=== PATIENT | male | born 1950 | race Asian ===

== ENCOUNTER → 2020-01-03 | Outpatient (CLI) | payer OTHER ==
[2020-01-03 11:07] LABS: APPEARANCE,URINE CLEAR (CLEAR); BILIRUBIN,URINE NEGATIVE (NEGATIVE); GLUCOSE, URINE (UA) 500 mg/dL (NEGATIVE); KETONES,URINE NEGATIVE (NEGATIVE); LEUKOCYTE ESTERASE ,URINE NEGATIVE (NEGATIVE); NITRATE,URINE NEGATIVE (NEGATIVE); OCCULT BLOOD,URINE TRACE (NEGATIVE); PROTEIN,URINE SEE CONFIRM (NEGATIVE); UROBILINOGEN,URINE 0.2 mg/dL (<=1.0)
[2020-01-03 11:16] LABS: SULFOSALICYLIC ACID,URINE 2+ (Negative)
[2020-01-03 11:17] LABS: BACTERIA,URINE None Seen /HPF (None Seen); RBC,URINE 0-2 /HPF (0-2); WBC,URINE None Seen /HPF (0-5)
[2020-01-03 11:17] LABS: ALBUMIN 3.6 g/dL (3.4-5.0); BILIRUBIN,TOTAL 0.3 mg/dL (0.1-1.0); CALCIUM, TOTAL 8.6 mg/dL (8.8-10.5); CREATININE 2.71 mg/dL (0.60-1.30); TOTAL PROTEIN, SERUM 7.4 g/dL (6.4-8.2)
== END | disposition home or self-care (01) ==
LOC: RADPV 08:17
PROVIDERS: ATTEND Orthopaedic Surgery
DX: I25.9 Chronic ischemic heart disease, unspecified (principal); E11.9 Type 2 diabetes mellitus without complications
CPT/HCPCS: 82043; 82570; 93306

== ENCOUNTER 2025-01-30 23:57 | Inpatient (IN) | payer MEDICARE, OTHER ==
[~2025-01-30] VITALS: Ht 162.6 cm; Wt 80.1 kg
[2025-01-31 00:52] LABS: BASOPHILS % (AUTO) 0.7 % (0.0-2.0); EOSINOPHILS % (AUTO) 13.3 % (1.0-6.0); HEMATOCRIT 21.7 % (41-53); HEMOGLOBIN 7.2 g/dL (13.5-17.5); LYMPHOCYTES # (AUTO) 0.7 K/uL (1.0-4.8); LYMPHOCYTES % (AUTO) 6.6 % (22.0-44.0); MEAN CORPUSCULAR HEMOGLOBIN 30.3 pg (26.0-34.0); MEAN CORPUSCULAR HGB CONC 33.2 G/dL (31.0-37.0); MEAN CORPUSCULAR VOLUME 91 fL (80-100); MONOCYTES # (AUTO) 0.8 K/uL (0.1-1.0); MONOCYTES % (AUTO) 7.3 % (2.0-9.0); NEUTROPHILS # (AUTO) 7.4 K/uL (1.8-7.7); NEUTROPHILS % (AUTO) 72.1 % (40.0-70.0); PLATELET COUNT (AUTO) 203 K/uL (150-450); RED BLOOD CELL COUNT(AUTO) 2.38 MIL/uL (4.50-5.90); RED CELL DISTRIBUTION WIDTH 14.9 % (11.5-14.5); WHITE BLOOD COUNT (AUTO) 10.3 K/uL (4.5-11.0)
[2025-01-31 00:59] LABS: COVID AG,FIA SOURCE NASAL SWAB
[2025-01-31 01:05] LABS: ANION GAP 14 mmol/L (8-16); CALCIUM, TOTAL 7.5 mg/dL (8.8-10.5); CARBON DIOXIDE 18 mmol/L (22-29); CHLORIDE 108 mmol/L (98-107); CREATININE 10.68 mg/dL (0.60-1.30); GLOMERULAR FILTR. RATE CALC 5 mL/min (>60); GLUCOSE,RANDOM 185 mg/dL (70-110); POTASSIUM 5.4 mmol/L (3.5-5.1); SODIUM SERUM 140 mmol/L (136-145)
[2025-01-31 01:07] LABS: APPEARANCE,URINE CLEAR (CLEAR); BILIRUBIN,URINE NEGATIVE (NEGATIVE); COLOR,URINE COLORLESS (YELLOW); GLUCOSE, URINE (UA) 300-500 mg/dL (NEGATIVE); KETONES,URINE NEGATIVE (NEGATIVE); LEUKOCYTE ESTERASE ,URINE NEGATIVE (NEGATIVE); NITRATE,URINE NEGATIVE (NEGATIVE); OCCULT BLOOD,URINE SMALL (NEGATIVE); PH,URINE 5.5 (5.0-8.0); PROTEIN,URINE 300-600,SEE CONFIRM mg/dL (NEGATIVE); SPECIFIC GRAVITIY, URINE 1.009 (1.003-1.030); UROBILINOGEN,URINE <=1.0 mg/dL (<=1.0)
[2025-01-31 01:08] LABS: ALBUMIN 2.8 g/dL (3.4-5.0); BILIRUBIN,DIRECT 0.1 mg/dL (0.00-0.20); BILIRUBIN,TOTAL 0.2 mg/dL (0.1-1.0); TOTAL PROTEIN, SERUM 7.2 g/dL (6.4-8.2)
[2025-01-31 01:16] LABS: CREATINE KINASE, TOTAL ONLY 210 U/L (39-308); UREA NITROGEN, BLOOD 140 mg/dL (7-18)
[2025-01-31 01:18] LABS: TROPONIN I-HIGH SENSITIVITY 261 ng/L (<76)
[2025-01-31 01:20] LABS: B-TYPE NATRIURETIC PEPTIDE 217 pg/mL (0-100)
[2025-01-31 01:23] LABS: SARS-COV2 (COVID) ANTIGEN,FIA Negative (Negative)
[2025-01-31 01:24] LABS: INFLUENZA TYPE A NEGATIVE FOR TYPE A (NEGATIVE); INFLUENZA TYPE B NEGATIVE FOR TYPE B (NEGATIVE)
[2025-01-31 01:33] LABS: PHOSPHORUS 3.1 mg/dL (2.5-4.9)
[2025-01-31] MEDS ORDERED: ALBUTEROL SULFATE 2.5 MG/0.5 ML NEB SOLUTION NEB PRN (01:45)
[2025-01-31] MEDS ORDERED: BISACODYL 10 MG RECTAL RECTAL SUPPOSITORY PR PRN (01:45)
[2025-01-31] MEDS ORDERED: ACETAMINOPHEN 325 MG TABLET PO PRN (01:45)
[2025-01-31] MEDS ORDERED: DEXTROSE 50%-WATER 25 GM/50 ML SYRINGE IVP PRN (01:45)
[2025-01-31] MEDS ORDERED: ONDANSETRON HCL 4 MG/2 ML VIAL IVP PRN (01:45)
[2025-01-31 01:46] LABS: BACTERIA,URINE Rare /HPF (None Seen); RBC,URINE 0-2 /HPF (0-2); SULFOSALICYLIC ACID,URINE 2+ (Negative); WBC,URINE 0-2 /HPF (0-5)
[2025-01-31 03:27] LABS: TROPONIN I-HIGH SENSITIVITY 235 ng/L (<76)
[2025-01-31 07:36] VITALS: BP 137/77; PULSE 82; RESP 19; TEMP 97.9; O2SAT 98
[2025-01-31 07:40] VITALS: BP 137/77; PULSE 82; RESP 18; TEMP 97.9; O2SAT 98
[2025-01-31] MEDS: DOCUSATE SODIUM 100 MG CAPSULE PO SCH (09:00)
[2025-01-31] MEDS: HEPARIN SODIUM,PORCINE 5,000 UNITS/ML VIAL SQ SCH (09:01)
[2025-01-31] MEDS: FAMOTIDINE 20 MG TABLET PO SCH (09:01)
[2025-01-31] MEDS: FOLIC ACID/VIT B COMPLEX AND C TABLET PO SCH (12:03)
[2025-01-31] MEDS: SODIUM ZIRCONIUM CYCLOSILICATE 5 GM POWDER PACKET PO SCH (12:04)
[2025-01-31] MEDS: PANTOPRAZOLE SODIUM 40 MG/VIAL IVP SCH (12:04)
[2025-01-31] MEDS: FUROSEMIDE 40 MG/4 ML VIAL IVP SCH (12:04)
[2025-01-31] MEDS: SEVELAMER CARBONATE 800 MG TABLET PO SCH (12:52)
[2025-01-31] MEDS: SODIUM BICARBONATE 650 MG TABLET PO SCH (12:54)
[2025-01-31] MEDS: SOD FERRIC GLUC COMPLX/SUCROSE 125 MG in SODIUM CHLORIDE 0.9% 100 ML IV SCH (13:16)
[2025-01-31] MEDS: EPOETIN ALFA 10,000 UNITS/ML VIAL SQ ONE (13:17)
[2025-01-31] MEDS ORDERED: SODIUM CHLORIDE 0.9% 500 ML IV ONE (13:19)
[2025-01-31] MEDS ORDERED: SODIUM CHLORIDE 0.9% 250 ML IV ONE (13:20)
[2025-01-31 13:25] VITALS: BP 137/67; PULSE 83; RESP 18; TEMP 97.8; O2SAT 100
[2025-01-31 16:40] VITALS: BP 133/54; PULSE 80; RESP 19; TEMP 97.9; O2SAT 99
[2025-01-31 17:46] LABS: GLUCOMETER DEV NAME(LOC) 5N.2C; GLUCOSE,POINT OF CARE 128 MG/DL (70-110)
[2025-01-31 17:46] LABS: GLUCOMETER DEV NAME(LOC) 5N.2C; GLUCOSE,POINT OF CARE 98 MG/DL (70-110)
[2025-01-31 17:46] LABS: GLUCOMETER DEV NAME(LOC) 5N.2C; GLUCOSE,POINT OF CARE 110 MG/DL (70-110)
[2025-01-31 19:30] VITALS: BP 139/68; PULSE 84; RESP 19; TEMP 97.9; O2SAT 98
[2025-01-31] MEDS: INSULIN LISPRO 100 UNITS/ML SQ PRN (20:18)
[2025-02-01 00:01] LABS: GLUCOMETER DEV NAME(LOC) 5N.2C; GLUCOSE,POINT OF CARE 217 MG/DL (70-110)
[2025-02-01 01:40] VITALS: BP 124/72; PULSE 82; RESP 18; TEMP 98; O2SAT 95
[2025-02-01 04:26] VITALS: BP 137/77; PULSE 74; RESP 18; TEMP 97.8; O2SAT 98
[2025-02-01 06:29] LABS: BASOPHILS % (AUTO) 0.8 % (0.0-2.0); EOSINOPHILS % (AUTO) 11.5 % (1.0-6.0); HEMATOCRIT 21.8 % (41-53); HEMOGLOBIN 7.2 g/dL (13.5-17.5); LYMPHOCYTES # (AUTO) 0.6 K/uL (1.0-4.8); LYMPHOCYTES % (AUTO) 6.9 % (22.0-44.0); MEAN CORPUSCULAR HEMOGLOBIN 30.2 pg (26.0-34.0); MEAN CORPUSCULAR HGB CONC 33.2 G/dL (31.0-37.0); MEAN CORPUSCULAR VOLUME 91 fL (80-100); MONOCYTES # (AUTO) 0.7 K/uL (0.1-1.0); MONOCYTES % (AUTO) 7.7 % (2.0-9.0); NEUTROPHILS # (AUTO) 6.8 K/uL (1.8-7.7); NEUTROPHILS % (AUTO) 73.1 % (40.0-70.0); PLATELET COUNT (AUTO) 208 K/uL (150-450); RED CELL DISTRIBUTION WIDTH 14.8 % (11.5-14.5); WHITE BLOOD COUNT (AUTO) 9.4 K/uL (4.5-11.0)
[2025-02-01 06:55] LABS: CALCIUM, TOTAL 7.5 mg/dL (8.8-10.5); CREATININE 10.02 mg/dL (0.60-1.30); PHOSPHORUS 8.8 mg/dL (2.5-4.9); POTASSIUM 4.9 mmol/L (3.5-5.1)
[2025-02-01 07:11] LABS: % IRON SATURATION 66.5 % (30-44)
[2025-02-01 08:57] VITALS: BP 149/78; PULSE 83; RESP 18; TEMP 97.9; O2SAT 97
[2025-02-01 12:16] VITALS: BP 140/72; PULSE 79; RESP 18; TEMP 98.1; O2SAT 98
[2025-02-01 12:25] LABS: GLUCOMETER DEV NAME(LOC) 5N.2C; GLUCOSE,POINT OF CARE 80 MG/DL (70-110)
[2025-02-01 12:25] LABS: GLUCOMETER DEV NAME(LOC) 5N.2C; GLUCOSE,POINT OF CARE 117 MG/DL (70-110)
== END 2025-02-01 14:00 | disposition left against medical advice (07) | DRG 640 ==
LOC: EMS 23:57 → EDH 01-31 01:39 → 5N 01-31 05:40
PROVIDERS: ADMIT Internal Medicine; ATTEND Internal Medicine
DX: E87.70 Fluid overload, unspecified (principal); N18.6 End stage renal disease; I12.0 Hypertensive chronic kidney disease with stage 5 chronic kidney disease or end stage renal disease; E87.20 Acidosis, unspecified; E87.5 Hyperkalemia; Z20.822 Contact with and (suspected) exposure to COVID-19; E11.22 Type 2 diabetes mellitus with diabetic chronic kidney disease; D63.1 Anemia in chronic kidney disease; E66.9 Obesity, unspecified; Z53.29 Procedure and treatment not carried out because of patient's decision for other reasons; Z79.4 Long term (current) use of insulin; Z79.899 Other long term (current) drug therapy; Z68.30 Body mass index [BMI] 30.0-30.9, adult; Z83.3 Family history of diabetes mellitus; Z91.158 Patient's noncompliance with renal dialysis for other reason
CPT/HCPCS: 71045; 80048; 80076; 81001; 81002; 82550; 82728; 82962; 83540; 83550; 83735; 83880; 84100; 84484; 85025; 85610; 85730; 86850; 86900; 86901; 87804; 93005; 99285; J0885; J1644; J1940; J2470; J2916; J7040; J7050; 36415-L1; 36415-TC